=== PATIENT | male | born 1975 | race Caucasian/White ===

== ENCOUNTER 2022-07-03 17:27 | Emergency (ER) | payer OTHER ==
[~2022-07-03] VITALS: Ht 180.3 cm; Wt 111.1 kg
[2022-07-03 17:34] VITALS: BP 126/95
--- NOTE | 2022-07-03 17:58 | NUR ---
PT C/O RIGHT SIDED HEADACHE X3 DAYS, ALSO C/O ABDOMINAL PAIN.
[2022-07-03] MEDS ORDERED: KETO120S5 TP (18:50)
--- NOTE | 2022-07-03 18:56 | NUR ---
Patient discharged with v/s stable. Written and verbal after care instructions given and explained. Patient verbalized understanding. Ambulatory with steady gait. All questions addressed prior to discharge. Advised to follow up with PMD.
== END 2022-07-03 18:55 | disposition home or self-care (01) ==
LOC: MED 17:27
DX: L74.0 Miliaria rubra (principal)
CPT/HCPCS: 99281